=== PATIENT | female | born 1955 | race Caucasian/White ===

== ENCOUNTER 2016-12-13 05:48 | Inpatient (IN) | payer OTHER ==
[~2016-12-13 05:48] MED LIST: ACETAMINOPHEN 500 MG TAB PO ONE; LR 1,000 ML IV SCH; ROPIVACAINE 0.2% 80 MG, EPINEPHrine 0.2 MG, KETOROLAC TROMETHAMINE 30 MG, morphINE 10 M... IU ONE; ceFAZolin 2 GM/DEXTROSE 100 ML IV ONE
[2016-12-13] MEDS ORDERED: LR 1,000 ML IV SCH ×2 (06:00→09:30)
[2016-12-13] MEDS ORDERED: ROPIVACAINE 0.2% 80 MG, EPINEPHrine 0.2 MG, KETOROLAC TROMETHAMINE 30 MG, morphINE 10 M... IU ONE (06:00)
[2016-12-13] MEDS ORDERED: LIDOCAINE 1% 2 ML INJ ID PRN (06:12)
[2016-12-13] MEDS ORDERED: LR 1,000 ML IV ONE (06:12)
[2016-12-13] MEDS ORDERED: BUPIVACAINE/EPI 0.5% 30 ML SDV ONE (06:44)
[2016-12-13] MEDS ORDERED: THROMBIN (BOVINE) 5,000 UNIT VIAL TP ONE (06:44)
[2016-12-13] MEDS ORDERED: BACITRACIN 50,000 UNITS/10 ML SYR IRR ONE (06:45)
[2016-12-13] MEDS ORDERED: CALCIUM CHLORIDE 1 GM/10 ML INJ ONE (06:45)
[2016-12-13] MEDS ORDERED: POLYMYXIN B SULFATE 500,000 UNIT/10 ML SYR IRR ONE (06:45)
[2016-12-13] MEDS ORDERED: ACETAMINOPHEN 500 MG TAB ONE (06:46)
[2016-12-13] MEDS ORDERED: ACETAMINOPHEN 500 MG TAB PO ONE (07:00)
[2016-12-13] MEDS ORDERED: ceFAZolin 2 GM/DEXTROSE 100 ML IV ONE (07:00)
--- NOTE | 2016-12-13 07:02 | PDHPUP ---
History & Physical Update H&P update statement: This history and physical update is based on an assessment of the patient which was completed after admission or registration (within 24 hours), but prior to the surgery/procedure. H&P update: H&P reviewed & patient examined, no change in patient's condition since H&P completed
[2016-12-13] MEDS ORDERED: MIDAZOLAM 2 MG/2 ML VIAL IVP ONE (07:10)
--- NOTE | 2016-12-13 07:13 | PDANEPAE ---
ANE History of Present Illness osteoarthritis of the left knee ANE Past Medical History - Cardiovascular History Hx Hypertension: No Hx Arrhythmias: No Hx Chest Pain: No Hx Coronary Artery / Peripheral Vascular Disease: No Hx CHF / Valvular Disease: No - Pulmonary History Hx COPD: No Hx Asthma/Reactive Airway Disease: No Hx Recent Upper Respiratory Infection: No Hx Oxygen in Use at Home: No Hx Sleep Apnea: No Sleep Apnea Screening Result - Last Documented: Negative - Neurologic History Hx Cerebrovascular Accident: No Hx Seizures: No Hx Dementia: No - Endocrine History Hx Diabetes: No - Renal History Hx Renal Disorders: No - Liver History Hx Hepatic Disorders: No - Neurological & Psychiatric Hx Hx Neurological and Psychiatric Disorders: No - Cancer History Hx Cancer: No - Congenital Disorder History Hx Congenital Disorders: No - GI History Hx Gastrointestinal Disorders: No - Other Health History Other Health History: OA, traumatic injury 40yrs ago Left knee - Chronic Pain History Chronic Pain: No - Surgical History Prior Surgeries: R rotator cuff 12-10-14. LEFT KNEE 40 YEARS AGO FOR TORN LIGAMENT. 4X ABD SURGERIES FOR ECTOPIC PREGNANCIES. 2002 OVARIES REMOVED. TONSILLECTOMY CHILD ANE Review of Systems - Exercise capacity METS (RN): 4 METS ANE Patient History - Allergies Allergies/Adverse Reactions: No Known Allergies Allergy (Verified 11/22/16 10:03) - Home Medications Home Medications: Alendronate Sodium [Fosamax 70 MG (*)] 70 mg PO MO@0700 11/18/16 [Last Taken Unknown] Calcium Carb W/Vit D [Calcium Carb W/Vit D 500/200 (*)] 500 mg PO BID 11/18/16 [ Last Taken Unknown] Cholecalciferol Vit D3 [Vitamin D3 2000 units tab (OTC)] 5,000 units PO DAILY [Last Taken Unknown] Herbals/Supplements -Info Only 1 ea PO DAILY 11/18/16 [Last Taken Unknown] Multivitamins [Multivitamin (*)] 1 each PO DAILY 11/18/16 [Last Taken Unknown] Naproxen Sodium [Aleve 220 MG (*)] 440 mg PO BID PRN 11/18/16 [Last Taken Unknown] - NPO status NPO Since - Liquids (Date): 01/12/17 NPO Since - Liquids (Time): 22:00 NPO Since - Solids (Date): 01/12/17 NPO Since - Solids (Time): 18:00 - Smoking Hx Smoking Status: Never smoked - Family Anes Hx Family Hx Anesthesia Complications: NONE ANE Labs/Vital Signs - Vital Signs Blood Pressure: 115/85 Heart Rate: 81 Respiratory Rate: 16 O2 Sat (%): 97 Height: 165.1 cm Weight: 54.431 kg ANE Physical Exam - Airway Neck exam: FROM Mallampati Score: Class 1 Mouth exam: normal dental/mouth exam - Pulmonary Pulmonary: no respiratory distress - Cardiovascular Cardiovascular: regular rate and rhythym - ASA Status ASA Status: I ANE Anesthesia Plan Anesthesia Plan: MAC, spinal Regional Anesthesia: single shot NB, adductor canal FNB
[2016-12-13] MEDS ORDERED: DEXAMETHASONE 4 MG/ML VIAL ONE (07:14)
[2016-12-13] MEDS ORDERED: ONDANSETRON 4 MG/2 ML VIAL ONE (07:14)
[2016-12-13] MEDS ORDERED: MIDAZOLAM 2 MG/2 ML VIAL ONE (07:14)
[2016-12-13] MEDS ORDERED: fentaNYL 100 MCG/2 ML INJ ONE ×2 (07:15→08:57)
[2016-12-13] MEDS ORDERED: PROPOFOL/EMULSION 500 MG/50 ML BOTTLE IV ONE (07:15)
[2016-12-13] MEDS ORDERED: ROPIVACAINE HCL 150 MG/30 ML INJ ONE (07:55)
[2016-12-13] MEDS ORDERED: HYDROmorphONE/DILAUDID 1 MG/ML SYR IVP PRN (08:08)
[2016-12-13] MEDS ORDERED: DEXAMETHASONE 4 MG/ML VIAL IVP PRN (08:08)
[2016-12-13] MEDS ORDERED: fentaNYL 100 MCG/2 ML INJ IVP PRN (08:08)
[2016-12-13] MEDS ORDERED: NALOXONE HCL 0.4 MG/ML INJ IVP PRN (08:08)
[2016-12-13] MEDS ORDERED: PROMETHAZINE HCL 25 MG/ML INJ IVP PRN ×2 (08:08→09:26)
[2016-12-13] MEDS ORDERED: epHEDrine SULFATE 10 MG/ML SYR ONE (08:24)
[2016-12-13] MEDS ORDERED: PROPOFOL 200 MG/20 ML VIAL ONE (09:04)
--- NOTE | 2016-12-13 09:25 | POSTOPPROG ---
Post Op Note Date of Operation: 12/13/16 Surgeon: Gloria Lopes Dormitory Keeper: coltrain Anesthesia: Epidural, IV Sedation Pre-op Diagnosis: l knee oa Procedure: l tkr Inf/Abcess present in the surg proc area at time of surgery?: No EBL: 100-500
[2016-12-13] MEDS ORDERED: PROMETHAZINE HCL 25 MG SUPPR PR PRN (09:26)
[2016-12-13] MEDS ORDERED: MAGNESIUM HYDROXIDE 30 ML UDCUP PO PRN (09:26)
[2016-12-13] MEDS ORDERED: TAPENTADOL HCL 50 MG TAB PO PRN (09:26)
[2016-12-13] MEDS ORDERED: POLYETHYLENE GLYCOL 3350 17 GM PKT PO PRN (09:26)
[2016-12-13] MEDS ORDERED: ONDANSETRON DISINTEGRATING 4 MG TAB PO PRN (09:26)
[2016-12-13] MEDS ORDERED: DIPHENOXYLATE/ATROPINE LOMOTIL 1 TAB PO PRN (09:26)
[2016-12-13] MEDS ORDERED: CYCLOBENZAPRINE 10 MG TAB PO PRN (09:26)
[2016-12-13] MEDS ORDERED: METOCLOPRAMIDE 10 MG/2 ML VIAL IVP PRN (09:26)
[2016-12-13] MEDS ORDERED: BISACODYL 10 MG SUPP PR PRN (09:26)
[2016-12-13] MEDS ORDERED: PHARMACY PAIN CONSULT 1 EA MISC PRN (09:26)
[2016-12-13] MEDS ORDERED: diphenhydrAMINE 25 MG CAP PO PRN (09:26)
[2016-12-13] MEDS ORDERED: ONDANSETRON 4 MG/2 ML VIAL IVP PRN (09:26)
[2016-12-13] MEDS ORDERED: oxyCODONE IR 5 MG TAB PO PRN (09:26)
[2016-12-13] MEDS ORDERED: LACTULOSE 20 GM/30 ML UDCUP PO PRN (09:26)
--- NOTE | 2016-12-13 09:45 | POSTANESTH ---
Post Anesthetic Evaluation Cardiovascular Status: Normal, Stable Respiratory Status: Normal, Stable Level of Consciousness/Mental Status: Can Participate in Eval Pain Control: Adequate, Prn Tx Ordered Nausea/Vomiting Control: Adequate, Prn Tx Ordered Complications Possibly Related to Anesthesia: None Noted
[2016-12-13] MEDS: KETOROLAC 30 MG/1 ML SDV IVP SCH ×2 (11:51→17:58)
[2016-12-13] MEDS: traMADol 50 MG TAB PO SCH ×2 (11:51→17:58)
[2016-12-13] MEDS: ACETAMINOPHEN 325 MG TAB PO SCH ×2 (11:52→17:58)
[2016-12-13] MEDS: ceFAZolin 2 GM/DEXTROSE 100 ML IV SCH ×2 (14:06→20:22)
--- NOTE | 2016-12-13 14:07 | GOP ---
[f rep st] OPERATIVE REPORT DATE OF OPERATION: 12/13/2016 SURGEON: Gloria Lopes MD WELDER RAILCAR MECHANIC: Irwin Maciel, CSFA, LSA whose presence was medically necessary. ANESTHESIA: By spinal, plus sedation. PREOPERATIVE DIAGNOSIS: Left knee osteoarthritis. POSTOPERATIVE DIAGNOSIS: Left knee osteoarthritis. PROCEDURE PERFORMED: Left total knee arthroplasty. FINDINGS: INDICATIONS: This is a 61-year-old female with a long history of left knee pain despite multiple castro rgeries and conservative measures. She wishes to have surgery in order to resolve the problem. DESCRIPTION OF PROCEDURE: The patient was brought to the operating room after the left side had bee n identified as the correct side by the patient, nurse and physician. Once in the operating room, s he was given epidural nerve block and then placed under sedation. A tourniquet was then placed on t he upper portion of the left thigh, and the left lower extremity was sterilely prepped and draped in the usual fashion using GSI solution. Once prepped and draped, limb was exsanguinated, tourniquet inflated to 250 mmHg. A linear incision was made on the anterior portion of the knee with 1 handbre adth above and below the patella, with sharp dissection carried down through the skin and subcutaneo us layers. Bleeding was controlled using electrocautery. A medial parapatellar incision was made t hrough the extensor mechanism with the patella brought to the side, but not everted. The ACL along with the medial and lateral meniscus were removed. She had significant spurring and grade 4 chondra l changes to the patellofemoral medial compartments. Osteophytes were not removed secondary to the custom made jigs that she had made for her. The 1st jig was placed on the distal end of the femur with lug holes drilled for the 2nd jig. The 2 nd jig was put into place with the end cutting guide and was pinned into place. A sagittal saw hugo g with an oscillating saw was used to remove the distal end of the femur until achieving a flat cut. Once positioned and had been checked to ensure a flat cut, drill holes had been made in the distal portion; therefore, the guide pins were placed in the distal end of the femur, and the 4-in-1 block was put into place, pinned into place using locking screws. The anterior posterior and anterior ch amfer cuts were made. Lug holes were drilled in the distal end of the femur, and a chamfer jig was then placed on the cut surface of the femur. Once the femur had been entirely cut, the trial was pu t into place, noted to fit securely. The leg was able to achieve full extension, suggesting that am ple bone had been removed. The trial was removed. The knee was brought to maximal flexion with the tibia subluxed anteriorly. Soft tissue dissection was done particularly on the medial portion in order to gain access to the osteophytes that the jig had been designed to accommodate. Once in place, the area where the feet sat upon the tibial platea u were marked with a ring, a curette was used to remove the cartilage to gain access to the bone bel ow. The jig was replaced onto the proximal tibia. The alignment looked good with a slight amount o f posterior slope and neutral varus/valgus. It was therefore pinned into place. An oscillating saw was used to remove the proximal portion of the tibia. Tibial trial along with femoral trial were p ut into place, and noted to fit securely. The rotation of the tibial component was marked. The fem oral component was removed. After the knee had been brought to maximal flexion, the tibial trial was pinned into place with an i ntramedullary reamer and a keel punch passed through the trial. The trial was then removed. The kn ee was brought to full extension. The patella was then everted, held in place with towel clamps. I t was measured to be 22 mm in thickness. Therefore, an oscillating saw was used to expose the poste rior portion of the patella, leaving 14 mm of bone. Multiple sizes were trialed on the cut surface of the patella, and noted a 35 mm patella button seemed to fit best. Therefore, lug holes drilled f or a 35 mm button. A joint cocktail was then injected around the femur, the posterior capsule, and the proximal tibia. The cut surfaces of bone were then thoroughly irrigated with antibiotic solution using pulsatile la vage while cement was being mixed. Once cement was doughy, it was placed on the proximal end of the tibia with a custom-made Conformist tibial component put into place, and excess cement removed usin g [place] elevators. Cement was placed on the posterior skids of the femoral component with cement pl aced on the distal anterior portion of the femur and a custom-made Conformist cruciate-retaining fem oral component was put into place, and excess cement removed using [place] elevator. Trial liner was placed on the tibial tray. The knee was brought to full extension under pressurized cement. Any ex cess cement was removed using [place] elevators. Cement was then placed on the cut surface of the pat narayan, and a 35 mm Conformist polyethylene button put into place, and excess cement removed using David er elevators. Once cement had hardened, multiple trials were placed in the tibial tray, noted that a size 7 medial insert seemed to fit best without blocking full extension. Therefore, a 7 mm medial polyethylene i nsert was put into place. On the lateral side, a size A insert was noted to have a snug fit without overstuffing the joint; therefore, a lateral size A polyethylene insert was placed in the tibial tr ay. The tourniquet was released at 61 minute. Bleeding was controlled using electrocautery. The wound was then closed using 0 Vicryl suture in a ecqnst-vd-bewwc type stitch for the extensor mechanism wi th Plasmagel placed intra-articularly. Then, 0 Vicryl and 2-0 Vicryl suture were used to close the subcutaneous layers, with Plasmagel placed external to the extensor mechanism. Then, 30 cc of Christine ine was infused around the actual skin incision itself. A 3-0 V-Loc suture was used to close the sk in in a running subcuticular stitch. The wound was then dressed with Steri-Strips, Xeroform, 4 x 4, and Kerlix. Leg was completely undraped in the operating room, tourniquet removed from the thigh, and an Reg wrap placed around the knee. She was then transferred onto a stretcher, and sent to [facility] room in good condition. TOURNIQUET TIME: 61 minute. /[id number]/MODL
[2016-12-13] MEDS: TEMAZEPAM 15 MG CAP PO PRN (20:22)
[2016-12-13] MEDS: SENNOSIDES/DOCUSATE SODIUM TAB PO SCH (20:22)
[2016-12-13] MEDS: FAMOTIDINE 20 MG TAB PO SCH (20:22)
[2016-12-14] MEDS: ACETAMINOPHEN 325 MG TAB PO SCH ×3 (00:42→12:13)
[2016-12-14] MEDS: traMADol 50 MG TAB PO SCH ×3 (00:42→12:13)
[2016-12-14] MEDS: KETOROLAC 30 MG/1 ML SDV IVP SCH ×3 (00:43→12:13)
[2016-12-14] MEDS: TEMAZEPAM 15 MG CAP PO PRN (00:44)
[2016-12-14 05:10] LABS: HEMATOCRIT 32.9 % (38.0-47.0); HEMOGLOBIN 10.8 g/dL (12.6-16.3)
[2016-12-14] MEDS ORDERED: RIVAROXABAN 10 MG TAB PO SCH (09:00)
[2016-12-14] MEDS: SENNOSIDES/DOCUSATE SODIUM TAB PO SCH (09:49)
[2016-12-14] MEDS: FAMOTIDINE 20 MG TAB PO SCH (09:50)
[2016-12-14 11:26] VITALS: BP 115/65; PULSE 70; RESP 18; TEMP 98.1; O2SAT 95
--- NOTE | 2016-12-14 12:05 | SOAPPROG ---
CHANI Progress Note Assessment/Plan: Assessment: Plan: - d/c home, does not need PT, will start outpatient PT next Monday12/14/16 12:03 Subjective: Doing well, minimal pain, did stairs with PT today. Would like to be discharged Objective: Vital Signs Temp Pulse Resp BP Pulse Ox 36.7 C 70 18 115/65 95 12/14/16 11:25 12/14/16 11:25 12/14/16 11:25 12/14/16 11:25 12/14/16 11:25 Laboratory Results 12/14/16 04:40 12/13/16 12/14/16 12/15/16 05:59 05:59 05:59 Intake Total 2280 Output Total 700 Balance 1580 Wound CDI, no active bleeding, ROM 5 to 90, calf NT, neg Homman's - Time Spent With Patient Time Spent With Patient: 15 - Pending Discharge Pending Discharge Within 24 Hours: Yes Pending Discharge Within 48 Hours: No Pending Discharge Date: 12/15/16 Pending Discharge Time: 11:00 ICD10 Worksheet Patient Problems: Problems Problem Status Onset Arthritis of left knee Acute - ICD10 Problem Qualifiers (1) Arthritis of left knee
== END 2016-12-14 12:45 | disposition home or self-care (01) | DRG 470 ==
LOC: F3N 05:48
PROVIDERS: ADMIT Orthopaedic Surgery; ATTEND Orthopaedic Surgery
PROC: 0SRD0J9 Replacement of Left Knee Joint with Synthetic Substitute, Cemented, Open Approach (ICD-10-PCS; principal; 2016-12-13 07:15)
DX: M17.12 Unilateral primary osteoarthritis, left knee (principal)
CPT/HCPCS: 97116-GP; 97161-GP; 97165-GO; 97530-GP; C1713; J0171; J0690; J1100; J1885; J2250; J2405; J2704; J2795; J3010; L1832

== ENCOUNTER → 2017-04-10 | Outpatient (CLI) | payer OTHER | LOC: CIMAGING 09:34 | PROVIDERS: ATTEND Nurse Practitioner | DX: Z12.31 Encounter for screening mammogram for malignant neoplasm of breast (principal) | CPT/HCPCS: G0202 ==

== ENCOUNTER → 2017-04-14 | Outpatient (CLI) | payer OTHER | LOC: BRMIMAGING 14:46 | PROVIDERS: ATTEND Nurse Practitioner | DX: Z13.820 Encounter for screening for osteoporosis (principal); M81.0 Age-related osteoporosis without current pathological fracture; R59.1 Generalized enlarged lymph nodes ==

== ENCOUNTER 2018-01-25 01:53 | Emergency (ER) | payer OTHER ==
--- NOTE | 2018-01-25 02:07 | EDPHY ---
H & P Stated Complaint: c/o jaw pain@ 20/ neck pain 01-took 2 oxy @21 Time Seen by Provider: 01/25/18 02:05 HPI/ROS: CC: Neck and jaw pain HPI: This 62-year-old female with past medical history of osteoporosis presents to the emergency department today complaining of an aching sensation in her trauma bilaterally that started at about 3:00 p.m. In the afternoon yesterday. She knew her then went out to dinner and she did not think much about it but when they got home from dinner she noticed that it was still aching and she took an old oxycodone from her knee replacement last year. She went to sleep at about 9 or 9:30 p.m. but awoke at 1am with the discomfort feeling more deep in her neck, lightheadedness, and as if she couldn't take a deep breath. She also felt slightly clammy. She rated the discomfort at that time at 4/10 and 3/10 currently. She denies having nausea or vomiting, chest, arm or back discomfort, or palpitations. She has no abdominal pain. She has not had episodes like this in the past but has been having jaw pain for a week and has a mouth guard to prevent her from clenching her teeth at night. She has had this guard for years and began wearing it again for this past week. She has not been ill recently. She has not had any long trips or air travel recently and denies leg pain or swelling. She exercises regularly without chest discomfort or other concerning symptoms. She does not have hypertension, diabetes, elevated cholesterol, prior cardiac problems, or family history of premature coronary artery disease. REVIEW OF SYSTEMS: Constitutional: No fever, no chills. Eyes: No discharge. ENT: No sore throat. Respiratory: No cough, no shortness of breath. Cardiac: No chest pain, no palpitations. Gastrointestinal: No abdominal pain, no vomiting. Genitourinary: No dysuria. Musculoskeletal: No back pain. Skin: No rashes. Neurological: No headache. 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 - Physical Exam Exam: General Appearance: Alert, anxious. Eyes: Pupils equal and round no pallor or injection. ENT, Mouth: Mucous membranes are moist. No pharyngeal erythema. Uvula midline. Neck: Supple, non-tender to palpation, no JVD, no bruits. Respiratory: There are no retractions, lungs are clear to auscultation. Cardiovascular: Regular rate and rhythm. No murmurs, gallops, or rubs. Gastrointestinal: Abdomen is soft and nontender, no masses, bowel sounds normal. Neurological: Awake and alert, sensory and motor exams grossly normal. Skin: Warm and dry, no rashes. Musculoskeletal: No calf tenderness, warmth, cords, or erythema. Extremities are symmetrical, full range of motion. Psychiatric: Patient is oriented X 3, there is no agitation. DIFFERENTIAL DIAGNOSIS: After history and physical exam differential diagnosis was considered for but not limited to: NH, cardiac ischemia, angina equivalent, pulmonary embolism, muscle spasm/teeth clenching, gastroesophageal reflux. Constitutional: Initial Vital Signs Temperature (C) 98 F 01/25/18 01:55 Heart Rate 87 01/25/18 01:55 Respiratory Rate 18 01/25/18 01:55 Blood Pressure 158/102 H 01/25/18 01:55 O2 Sat (%) 95 01/25/18 01:55 O2 Delivery Mode Room Air Allergies/Adverse Reactions: No Known Allergies Allergy (Verified 11/22/16 10:03) Home Medications: Medication Instructions Recorded Calcium Carb W/Vit D [Calcium Carb 500 mg PO BID 11/18/16 W/Vit D 500/200 (*)] Cholecalciferol Vit D3 [Vitamin D3 5,000 units PO DAILY 11/18/16 2000 units tab (OTC)] Herbals/Supplements -Info Only 1 ea PO DAILY 11/18/16 Multivitamins [Multivitamin (*)] 1 each PO DAILY 11/18/16 Naproxen Sodium [Aleve 220 MG (*)] 440 mg PO BID PRN 11/18/16 Acetaminophen [Tylenol 325mg (*)] 650 mg PO Q6HRS #0 tab 12/14/16 oxyCODONE IR [Oxycodone Ir (*)] 5 - 10 mg PO Q3HRS PRN #0 tab 12/14/16 Medical Decision Making - Diagnostics EKG Interpretation: EKG number one: Baseline artifact, normal sinus rhythm, heart rate 93, borderline right axis deviation, borderline QT prolongation with a QTcB of 494 and QTcF of 459, minimal ST depression precordial leads EKG number two: Baseline artifact resolved, normal sinus rhythm, heart rate 79 , minimal ST depression diffuse leads similar to that seen in EKG #1 Imaging Results: 2-view CXR: Normal Imaging: I viewed and interpreted images myself ED Course/Re-evaluation: The patient was seen and examined. Vital signs reviewed. Prior records reviewed but were limited to mainly orthopedic issues. No prior EKG. The patient was hypertensive on arrival but this normalized during her stay. She was given an aspirin upon arrival. EKG 1 showed a normal sinus rhythm with a heart rate of 93. There is baseline artifact but minimal ST depression was noted in the precordial leads. Her CBC and comprehensive metabolic panel were unremarkable and her troponin was 0.00. Her chest x-ray was normal. A D-dimer was not performed because she did not meet PERC criteria and had no risk factors for PE. The patient was offered observation at [facility] for further evaluation including troponin and stress test. She and her discussed the options and elected to have a repeat troponin and EKG and if normal go home and follow up outpatient in the next 1 - 3 days. Her HEART score is 3 which is low risk with risk for major adverse cardiac event being 0.9-1.7%. Her 2nd EKG showed a normal sinus rhythm with a heart rate of 79, and again the minimal ST depression in the precordial leads was noted and unchanged from EKG 1. Her 2nd troponin is also 0.00 in the setting of continued neck discomfort for more than 4 hours. She declined NTG or GI coctail. She will be discharged to follow up with [facility] as directed. If she has any difficulty getting seen in the next couple days and most importantly before they leave for a motorcycle tour across [place] on January 30 (which is 5 days from now), they were advised to return to the emergency room. She has also agreed to return to the emergency room immediately if symptoms change or worsen as discussed. - Data Points Laboratory Results: Laboratory Results 01/25/18 02:27 01/25/18 01/25/18 01/25/18 04:04 02:33 02:32 WBC RBC Hgb Hct MCV MCH MCHC RDW Plt Count MPV Neut % (Auto) Lymph % (Auto) Dubois % (Auto) Eos % (Auto) Baso % (Auto) Nucleat RBC Rel Count Absolute Neuts (auto) Absolute Lymphs (auto) Absolute Monos (auto) Absolute Eos (auto) Absolute Basos (auto) Absolute Nucleated RBC Immature Gran % Immature Gran # POC Sodium 142 mEq/L mEq/L (135-145) POC Potassium 4.4 mEq/L mEq/L (3.3-5.0) POC Chloride 103.0 mEq/L mEq/L (97-110) POC Total CO2 28 mEq/L mEq/L (22-31) POC BUN 18 mg/dL mg/dL (7-23) POC Creatinine 1.0 mg/dL mg/dL (0.6-1.0) POC Glucose 111 mg/dL H mg/dL (70-100) POC Calcium 9.3 mg/dL mg/dL (8.5-10.4) POC Total Bilirubin 0.5 mg/dL mg/dL (0.1-1.4) POC AST 36 IU/L IU/L (14-46) POC ALT 19 IU/L IU/L (9-52) POC Alk Phosphatase 64 IU/L IU/L (38-126) POC Troponin I 0.00 ng/mL ng/mL 0.00 ng/mL ng/mL (0.00-0.08) (0.00-0.08) POC Total Protein 6.6 g/dL g/dL (6.3-8.2) POC Albumin 3.8 g/dL g/dL (3.5-5.0) 01/25/18 02:27 WBC 8.30 10^3/uL 10^3/uL (3.80-9.50) RBC 4.29 10^6/uL 10^6/uL (4.18-5.33) Hgb 14.1 g/dL g/dL (12.6-16.3) Hct 41.9 % % (38.0-47.0) MCV 97.7 fL fL (81.5-99.8) MCH 32.9 pg pg (27.9-34.1) MCHC 33.7 g/dL g/dL (32.4-36.7) RDW 12.9 % % (11.5-15.2) Plt Count 219 10^3/uL 10^3/uL (150-400) MPV 10.2 fL fL (8.7-11.7) Neut % (Auto) 68.3 % % (39.3-74.2) Lymph % (Auto) 21.6 % % (15.0-45.0) Dubois % (Auto) 8.2 % % (4.5-13.0) Eos % (Auto) 0.8 % % (0.6-7.6) Baso % (Auto) 0.6 % % (0.3-1.7) Nucleat RBC Rel Count 0.0 % % (0.0-0.2) Absolute Neuts (auto) 5.67 10^3/uL 10^3/uL (1.70-6.50) Absolute Lymphs (auto) 1.79 10^3/uL 10^3/uL (1.00-3.00) Absolute Monos (auto) 0.68 10^3/uL 10^3/uL (0.30-0.80) Absolute Eos (auto) 0.07 10^3/uL 10^3/uL (0.03-0.40) Absolute Basos (auto) 0.05 10^3/uL 10^3/uL (0.02-0.10) Absolute Nucleated RBC 0.00 10^3/uL 10^3/uL (0-0.01) Immature Gran % 0.5 % % (0.0-1.1) Immature Gran # 0.04 10^3/uL 10^3/uL (0.00-0.10) POC Sodium POC Potassium POC Chloride POC Total CO2 POC BUN POC Creatinine POC Glucose POC Calcium POC Total Bilirubin POC AST POC ALT POC Alk Phosphatase POC Troponin I POC Total Protein POC Albumin Medications Given: Discontinued Medications Aspirin (Aspirin) 324 mg PO EDNOW ONE Stop: 01/25/18 02:41 Last Admin: 01/25/18 02:52 Dose: 324 mg Point of Care Test Results: Chemistry 01/25/18 01/25/18 01/25/18 04:04 02:33 02:32 POC Sodium 142 mEq/L mEq/L (135-145) POC Potassium 4.4 mEq/L mEq/L (3.3-5.0) POC Chloride 103.0 mEq/L mEq/L (97-110) POC Total CO2 28 mEq/L mEq/L (22-31) POC BUN 18 mg/dL mg/dL (7-23) POC Creatinine 1.0 mg/dL mg/dL (0.6-1.0) POC Glucose 111 mg/dL H mg/dL (70-100) POC Calcium 9.3 mg/dL mg/dL (8.5-10.4) POC Total Bilirubin 0.5 mg/dL mg/dL (0.1-1.4) POC AST 36 IU/L IU/L (14-46) POC ALT 19 IU/L IU/L (9-52) POC Alk Phosphatase 64 IU/L IU/L (38-126) POC Troponin I 0.00 ng/mL ng/mL 0.00 ng/mL ng/mL (0.00-0.08) (0.00-0.08) POC Total Protein 6.6 g/dL g/dL (6.3-8.2) POC Albumin 3.8 g/dL g/dL (3.5-5.0) Departure - Departure Disposition: Home, Routine, Self-Care Clinical Impression: Pain in lower jaw, Neck discomfort Condition: Good Instructions: Chest Pain (ED) Additional Instructions: Please read and follow provided instructions. Follow-up with [facility], our cardiology group in the next 1-3 days for re- evaluation and testing as discussed. Return to the emergency department for worsening or changing symptoms as discussed. (Enjoy your motorcycle tour through [place]!) Referrals: Edie Silver NP [Certified Nurse Practioner] - As per Instructions CARDIOLOGY,[facility] [Edm Groups for Call Sched] - As per Instructions
[2018-01-25] MEDS ORDERED: ASPIRIN 81 MG CHEWABLE TAB PO ONE (02:40)
--- NOTE | 2018-01-25 02:53 | CPEKG ---
Test Reason : OPEN Blood Pressure : / mmHG Vent. Rate : 093 BPM Atrial Rate : 092 BPM P-R Int : 125 ms QRS Dur : 091 ms QT Int : 397 ms P-R-T Axes : 085 082 000 degrees QTc Int : 494 ms Sinus rhythm Borderline right axis deviation Borderline prolonged QT interval Nonspecific ST depression Confirmed by Viridiana Acosta ([id number]) on 01/25/2018 2:53:17 AM Referred By: Confirmed By:Viridiana Acosta
[2018-01-25 03:15] LABS: PLATELET COUNT 219 10^3/uL (150-400)
[2018-01-25 04:42] VITALS: BP 118/64
== END 2018-01-25 04:41 | disposition home or self-care (01) ==
LOC: CED 01:53
DX: M54.2 Cervicalgia (principal); R68.84 Jaw pain
CPT/HCPCS: 71046-PO; 80053-PO; 84484-PO

== ENCOUNTER 2018-01-25 17:31 | Observation (INO) | payer OTHER ==
[2018-01-25] MEDS ORDERED: ACETAMINOPHEN 325 MG TAB PO PRN (19:15)
[2018-01-25] MEDS ORDERED: ONDANSETRON DISINTEGRATING 4 MG TAB PO PRN (19:15)
[2018-01-25] MEDS ORDERED: ONDANSETRON 4 MG/2 ML VIAL IVP PRN (19:15)
[2018-01-25 19:28] LABS: PLATELET COUNT 192 10^3/uL (150-400)
--- NOTE | 2018-01-25 20:09 | GHP ---
DATE OF ADMISSION: 01/25/2018 INDICATION FOR ADMISSION: New onset of jaw pain, neck pain, midscapular. HISTORY OF PRESENT ILLNESS: Shayy is a pleasant 62-year-old female with a past medical history of os teoporosis, total knee replacement, and rotator cuff surgery, who presented to the office today with a 2-day history of jaw pain, neck pain, and midscapular discomfort. Shayy states that she was in her usual state of health until yesterday. During the day, she developed a bilateral jaw discomfort orquidea t she described as dull and nonradiating. She states the jaw discomfort persisted throughout the day with no exacerbating or alleviating factors and no other associated symptoms. She reports that at 8 :30 p.m. she commented to her that her jaw was hurting. She did not seek medical attention a t that time. She woke up at 1:00 a.m. this morning with the pain in her jaw radiating down into her neck, associat ing with a feeling of lightheadedness, dizziness, and diaphoresis, as well as shortness of breath. S he presented to [facility] at 2 a.m. this morning. Her workup there demonstrated ini tial blood pressure 158/102 and a heart rate of 87. ECG demonstrated borderline ST-segment depressio n throughout the precordial leads. Chest x-ray was unremarkable. Troponins x2 were negative and she was discharged home for followup with me in the office today. Of note, she was seen by her primary care physician earlier today, who recommended that she continue to keep her appointment with me this afternoon secondary to ongoing discomfort. She states that she continues to have jaw discomfort, neck pain, and midscapular discomfort that she is unable to alleviate with change in position. Symptoms are worse with deep inspiration and she not es feeling pressure and tightness behind her throat, particularly with lying flat. She admits to catie e ongoing mild shortness of breath and dyspnea on exertion. She has been traveling recently with long road trips, driving from [place] returning to [place], and then driving down to [place] and other parts of [place] and [facility]. She has no history of DVT or pulmonary emboli. Given her history and symptoms, I did send her down for a stat CTA, which was negative for aortic dis section or pulmonary emboli. She returned to the office after her study with ongoing symptoms. I recommended she be admitted to [facility] for further evaluation. REVIEW OF SYSTEMS: A 10 point review of systems is negative with the exception of those described ab joyce in HPI. PAST MEDICAL HISTORY: Osteoporosis; orthopedic issues including total knee replacement and rotator c uff surgery. MEDICATIONS ON ADMISSION: Alendronate 70 mg once daily for osteoporosis. SOCIAL HISTORY: She is . She is physically active. She is a lifelong nonsmoker. She lives with her . She exercises doing yoga. FAMILY HISTORY: Her mother at the age of 59 from a brain aneurysm. Her brother from a bra in aneurysm as well. Both had a history of polycystic kidney disease. Her father at 71 from me sothelioma. PHYSICAL EXAMINATION: VITAL SIGNS: Blood pressure of 122/84 with a heart rate of 96, weight of 57.2 kg, body mass index of 20.76, oxygen saturation 93% on room air. GENERAL: She is awake, alert, homer ented, appropriate. No apparent distress. NECK: There is no evidence of JVP or carotid bruits. OLE NGS: Clear to auscultation bilaterally. CARDIAC: S1, S2. Regular rate and rhythm. No murmurs, ru bs, or gallops. ABDOMEN: Soft, nontender, nondistended. Abdominal aorta is palpable but within nor mal size. No evidence of abdominal bruit. No evidence of cyanosis, clubbing, edema. Dorsalis pedis and posterior tibial pulses are intact. IMPRESSION: 1. New onset of ongoing jaw pain, midscapular pain, and throat tightness, exacerbated with deep insp iration and with lying flat, coupled with symptoms of dyspnea on exertion and shortness of breath. C TA is negative for pulmonary embolism or aortic dissection. Recommend patient be admitted for furthe r evaluation including repeat ECG, serial troponins. Would also recommend CTA of the bilateral carot ids and the head. We will recommend complete 2D echocardiogram. 2. We will keep patient n.p.o. after midnight. Pending the above evaluation, we will consider exerc ise stress testing versus cardiac catheterization. PLAN: 1. Admit to [facility] telemetry to Cardiology Service. 2. CTA of the head and neck to be performed this evening. 3. Complete 2D echocardiogram to be performed tomorrow. 4. n.p.o. after midnight. 5. Will obtain ECG. 6. Serial troponins. 7. Plan for exercise nuclear stress test versus cardiac catheterization pending results of workup. /[id number]/MODL
[2018-01-25] MEDS ORDERED: IOPAMIDOL (ISOVUE 370) 100 ML BTL IV ONE (21:02)
[2018-01-26 03:41] LABS: PLATELET COUNT 184 10^3/uL (150-400)
[2018-01-26 03:48] LABS: INR 1.04 (0.83-1.16); PROTIME(PATIENT) 13.8 SEC (12.0-15.0)
--- NOTE | 2018-01-26 10:04 | ASMTCMCOM ---
CM Note CM Note Notes: Pt is a 62 y/o female admitted for chest pain and jaw pain. Pt had a neck and head CTA which was negative. Pt will most likely d/c independent when medically stable. No therapies ordered at this time. CM available for changes. Plan: Independent Date Signed: 01/26/2018 10:03 AM Electronically Signed By:SHAMA Baer
[2018-01-26] MEDS ORDERED: DIAZEPAM 5 MG TAB PO ONE (10:23)
[2018-01-26] MEDS ORDERED: ASPIRIN EC 325 MG TAB PO ONE ×2 (10:23→10:45)
[2018-01-26] MEDS ORDERED: FAMOTIDINE 20 MG TAB PO ONE (10:23)
[2018-01-26] MEDS ORDERED: TEMAZEPAM 15 MG CAP PO PRN (10:23)
[2018-01-26] MEDS ORDERED: diphenhydrAMINE 25 MG CAP PO ONE ×2 (10:23→10:44)
--- NOTE | 2018-01-26 10:23 | PDPROPOC ---
Sedation Plan of Care Sedation Plan of Care: vital signs stable, mental status noted, patient educated of risks, benefits, alternatives, patient can tolerate sedation ASA Classification: ASA 1 Planned drugs: fentanyl, midazolam Mallampati Score: Class 1 Mallampati Reference Image: Patient passed 3-3-2 rule?: Yes
[2018-01-26] MEDS ORDERED: FAMOTIDINE 20 MG TAB ONE (10:45)
[2018-01-26] MEDS ORDERED: LIDOCAINE 1% 300 MG/30 ML SDV ONE (10:45)
[2018-01-26] MEDS ORDERED: fentaNYL 100 MCG/2 ML INJ ONE (10:46)
[2018-01-26] MEDS ORDERED: HEPARIN 10,000 UNIT/10 ML MDV (1,000 UNIT/ML) ONE (10:46)
[2018-01-26] MEDS ORDERED: IOPAMIDOL (ISOVUE-370) 150 ML BTL IV ONE (10:46)
[2018-01-26] MEDS ORDERED: VERAPAMIL 5 MG/2 ML VIAL ONE (10:46)
[2018-01-26] MEDS ORDERED: MIDAZOLAM 2 MG/2 ML VIAL ONE ×2 (10:46)
[2018-01-26] MEDS ORDERED: DIAZEPAM 5 MG TAB ONE (10:46)
--- NOTE | 2018-01-26 11:01 | ECHO ---
[email or web address] [address] [address] Main: [phone] Fax: Transthoracic Echocardiogram Name: NANCY HAMILTON MR#: [id number] Study Date: 01/26/2018 Study Time: 08:02 AM Date of : 1955 Age: 62 year(s) Height: 165.1 cm (65 in.) Weight: 55.79 kg (123 lb.) BSA: 1.61 m2 Gender: Female Examination: Echo Indication: jaw pain, discomfort with lying flat, neck pain and back pain Image Quality: Adequate Contrast: Requested by: Alli Jones BP: 136 mmHg/86 mmHg Heart Rate: Rhythm: Indication: jaw pain, discomfort with lying flat, neck pain and back pain Procedure Staff Product Mgmt Dev Manager: Kym Holder RD Reading Physician: Lencho Thomas MD Requesting Provider: Conclusions: Normal size left ventricle. Normal global systolic LV function. EF is 68 %. Normal diastolic LV function. Trivial mitral valve regurgitation. Trivial tricuspid valve regurgitation. Pulmonary artery pressure is not obtained due to inadequate TR jet. Measurements: Chambers Valvular Assessment AV/MV Valvular Assessment TV/PV Normal Normal Normal Name Value Range Name Value Range Name Value Range Ao Veronica (MM): 3.1 cm (2.2 cm-3.7 AV Vmax: 1.21 m/s (1 m/s-1.7 PV Vmax: 0.98 m/s (0.6 m/s-0.9 cm) m/s) m/s) IVSd (2D): 0.8 cm (0.6 cm-1.1 AV maxP mmHg ( - ) PV PGmax: 4 mmHg ( - ) cm) LVOT Vmax: 0.84 m/s (0.7 m/s-1.1 LVDd (2D): 4.5 cm (3.9 cm-5.3 m/s) cm) EDIN (Vmax): 2.0 cm2 ( - ) LVDs (2D): 3.1 cm (2.1 cm-4 MV E Vmax: 0.47 m/s ( - ) cm) MV A Vmax: 0.47 m/s ( - ) LVPWd (2D): 0.7 cm ( - ) MV E/A: 1.00 ( - ) LVOTd 1.9 cm 1.9 cm mm LVEF (BP): 68 % (>=55 %) RVDd(2D): 2.6 cm (1.9 cm-3.8 cmmm) Continued Measurements: Chambers Valvular Assessment AV/MV Patient: NANCY HAMILTON Study Date: 01/26/2018 Page 1 of 2 08:02 AM Name Value Name Value LADs Lon.6 cm MV DecTime: 137 m/s LA Area: 14.3 cm2 MV E' Septal: 0.07 m/s LA Volume: 47 ml MV E/E' Septal: 6.90 LA Volume Index: 29.2 ml/m2 MV E/E' Lateral: 3.30 TAPSE: 1.8 cm RA Area: 11.3 cm2 Additional Vessels Name Value Ao Ascendin.6 cm Findings: Left Ventricle: Normal size left ventricle. No LV hypertrophy. Normal global systolic LV function. EF is 68 %. Normal diastolic LV function. Right Ventricle: Normal size right ventricle. Normal RV function. Left Atrium: The left atrium is normal in size. 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 Mitral Valve: There is mild thickening of the mitral valve leaflets. Trivial mitral valve regurgitation. No mitral stenosis is present. Aortic Valve: The aortic valve is tri-leaflet. There is no aortic valve regurgitation. No aortic valve stenosis is present. Tricuspid Valve: The tricuspid valve appears normal. Trivial tricuspid valve regurgitation. Pulmonary artery pressure is not obtained due to inadequate TR jet. Pulmonic Valve: Pulmonary valve not well visualized. There is no pulmonic regurgitation seen. Aorta: Normal size aortic root measuring 3.1 cm. Normal size ascending aorta measuring 2.6 cm. IVC: The IVC is normal sized. Pericardium: No pericardial effusion. (No Signature Object) Patient: NANCY HAMILTON Study Date: 01/26/2018 Page 2 of 2 08:02 AM [id number]
[2018-01-26] MEDS ORDERED: ATROPINE SULFATE 1 MG/10 ML SYR IVP PRN (11:55)
--- NOTE | 2018-01-26 13:17 | PDCARPN ---
Cardiology Progress Note Chief Complaint: Neck, jaw and midscapular pain Assessment/Plan: Assessment: 1. Atrial tachycardia 2. Atypical jaw, chest, midscapular neck pain Plan: -start metoprolol tartrate 25 mg p.o. B.i.d. -okay for patient to go on her trip to [place] next week -arrange for consultation with Dr. Marshall Britt regarding EP study and atrial tachycardia ablation -will discharge home later this afternoon. 01/26/18 13:17 Subjective: Shayy states she is feeling better this morning. Neck, jaw and scapular discomfort have resolved. She did describe some episodes of chest pressure throughout the course of the night. Workup to date has been unremarkable. CT of the chest was negative for pulmonary embolism or aortic dissection. CT a of the head and neck demonstrated normal carotid arteries and normal [place] and vertebral circulation. No evidence of aneurysm. Troponin has been negative x2. TSH was normal at 0.7. Telemetry does demonstrate runs of atrial tachycardia at 150 beats per minute with narrow DE interval and ST segment depression. Echocardiogram demonstrates normal left ventricular size and function. Normal atrial dimensions. No significant valvular disease and no evidence of pericardial effusion. In the setting of atypical chest pressure, neck and jaw pain and atrial tachycardia with ST depression, patient underwent diagnostic left heart catheterization demonstrating normal coronary arteries and normal left ventricular function. She is currently recovering from her left heart catheterization. She tolerated the procedure well. Reviewed/Discussed With: family Time Spent with Patient: greater than 25 minutes Time Spent with Patient: Greater than 25 minutes spent on this patients care, greater than 50% of time spent counseling, educating, and coordinating care regarding the above mentioned plan. Objective: Vital Signs (8 Hrs) Temp Pulse Resp BP Pulse Ox 01/26/18 07:11 36.9 C 103 H 14 136/86 H 99 Intake/Output (24 Hrs) 01/25/18 01/26/18 01/27/18 05:59 05:59 05:59 Other: Weight 55.792 kg Number of Voids Toilet 4 Result Diagrams: 01/26/18 03:26 01/25/18 19:20 Cardiac Labs: Cardiac Lab Results (72 Hrs) 01/26/18 01/25/18 03:26 19:20 Troponin I < 0.012 < 0.012 - Physical Exam Ears, Nose, Mouth, Throat: moist mucous membranes Cardiovascular: regular rate and rhythm, no murmurs, no rubs, no gallops ICD10 Worksheet Patient Problems: Problems Problem Status Onset Arthritis of left knee Acute
[2018-01-26] MEDS ORDERED: NAPROXEN SODIUM 220 MG TAB PO PRN (14:28)
--- NOTE | 2018-01-26 14:30 | CPEKG ---
Test Reason : OPEN Blood Pressure : / mmHG Vent. Rate : 085 BPM Atrial Rate : 084 BPM P-R Int : 112 ms QRS Dur : 089 ms QT Int : 389 ms P-R-T Axes : 085 077 069 degrees QTc Int : 463 ms Sinus rhythm Borderline ST depression, diffuse leads Confirmed by Jagdish Posada ([id number]) on 01/26/2018 2:30:15 PM Referred By: Confirmed By:Jagdish Posada
[2018-01-26 15:08] VITALS: BP 119/67
--- NOTE | 2018-01-26 19:24 | GDS ---
ADMIT DIAGNOSIS: Atypical jaw, chest, and midscapular neck pain. DISCHARGE DIAGNOSES: 1. Atrial tachycardia. 2. Atypical jaw, chest, midscapular neck pain. COURSE OF HOSPITALIZATION: The patient was seen in the clinic by Dr. Alli Jones on 01/25/2018, for e valuation of neck, jaw, and scapular discomfort. She had a CT of the chest that was negative for pul monary emboli or aortic dissection. CT of the head and neck demonstrated normal carotid arteries and normal [place] and vertebral circulation. There was no evidence of aneurysm. Troponins we re negative x2. Her TSH was normal. Telemetry on 01/26/2018, demonstrated runs of atrial tachycardi a at 150 beats per minute with narrow SD intervals and ST-segment depression. She did have an echoca rdiogram done that showed normal left ventricular size and function. Normal atrial dimensions and no significant valvular disease or evidence of pericardial effusion. Due to the atypical chest pain, n uyen and jaw pain, and the atrial tachycardia with ST depression, Dr. Jones recommended cardiac angiogr am, which was performed by Dr. Lencho Thomas, finding normal coronary arteries and normal ventricular function. It was determined that after she recovered from the left heart catheterization and there w as no risk for bleeding, that she could be discharged. Her wrist access site was intact with no blee ding, induration, or pain. She has been up ambulating with no problems. PHYSICAL EXAMINATION: VITAL SIGNS: On day of discharge, blood pressure 119/67, heart rate 78. CARD IAC: No murmurs, rubs, or gallops. RESPIRATORY: Lungs sounds are clear to auscultation. WRIST: A ccess site is intact with no bleeding, tenderness, or induration. DISCHARGE PLAN: She will be discharged home on metoprolol 25 mg twice daily. She is to [facility] Dr. Jones and Dr. Britt. She will see Dr. Britt in 1 month, scheduled for 02/22/2018, at 2:45, and a f olnathalieup with Dr. Jones will be scheduled after that appointment. Wrist site instructions were given v erbally and written with instructions not to lift anything heavier than 10 pounds for the next 48 pearl rs. No aggressive activity of the wrist for 48 hours. She can proceed with [place] plans [place]. Should she have problems, she is to call [facility] and contact information was prov ided to her. At this time, she currently is stable for discharge. /[id number]/MODL
[2018-01-26] MEDS ORDERED: CALCIUM CARB W/VIT D 500 MG TAB PO SCH (21:00)
[2018-01-26] MEDS ORDERED: METOPROLOL TARTRATE 25 MG TAB PO SCH (21:00)
[2018-01-27] MEDS ORDERED: CHOLECALCIFEROL VIT D3 2,000 UNITS TAB/CAP PO SCH (09:00)
[2018-01-27] MEDS ORDERED: MULTIVITAMINS 1 EACH TAB PO SCH (09:00)
[2018-01-27] MEDS ORDERED: Herbals/Supplements -Info Only PO SCH (09:00)
[2018-01-29] MEDS ORDERED: ALENDRONATE SODIUM 70 MG TAB PO SCH (07:00)
== END 2018-01-26 16:00 | disposition home or self-care (01) ==
LOC: INTOOBSV 17:31 → F2W 17:31
PROVIDERS: ADMIT Internal Medicine Cardiovascular Disease; ATTEND Internal Medicine Cardiovascular Disease
DX: I47.1 Supraventricular tachycardia (principal); R68.84 Jaw pain; M54.2 Cervicalgia; Z96.659 Presence of unspecified artificial knee joint
CPT/HCPCS: 70496; 70498; 93005; 93306; 93458; G0378; C1769; J1644; J2250; J3010; Q9967

== ENCOUNTER → 2018-01-25 | Outpatient (CLI) | payer OTHER ==
[~2018-01-25] MED LIST changes: -ACETAMINOPHEN 500 MG TAB PO ONE; +IOPAMIDOL (ISOVUE 370) 100 ML BTL IV ONE; -LR 1,000 ML IV SCH; -ROPIVACAINE 0.2% 80 MG, EPINEPHrine 0.2 MG, KETOROLAC TROMETHAMINE 30 MG, morphINE 10 M... IU ONE; -ceFAZolin 2 GM/DEXTROSE 100 ML IV ONE
== END ==
LOC: FIMAGING 14:57
PROVIDERS: ATTEND Internal Medicine Cardiovascular Disease
DX: R07.9 Chest pain, unspecified (principal); M54.9 Dorsalgia, unspecified; R68.84 Jaw pain; M54.2 Cervicalgia
CPT/HCPCS: Q9967

== ENCOUNTER → 2018-03-14 | Outpatient (CLI) | payer OTHER | LOC: CIMAGING 09:11 | PROVIDERS: ATTEND Nurse Practitioner | DX: N63.21 Unspecified lump in the left breast, upper outer quadrant (principal) | CPT/HCPCS: 76641-PO ==

== ENCOUNTER → 2018-03-19 | Outpatient (CLI) | payer OTHER | LOC: BRMIMAGING 09:04 | PROVIDERS: ATTEND Nurse Practitioner | DX: M81.0 Age-related osteoporosis without current pathological fracture (principal) ==

== ENCOUNTER → 2018-03-26 | Outpatient (CLI) | payer OTHER ==
[~2018-03-26] MED LIST changes: +BUPIVACAINE 0.5% 30 ML SDV ONE; -IOPAMIDOL (ISOVUE 370) 100 ML BTL IV ONE; +LIDOCAINE 1% 300 MG/30 ML SDV ONE; +THROMBIN (BOVINE) 5,000 UNIT VIAL TP ONE
== END ==
LOC: FIMAGING 07:11
PROVIDERS: ATTEND Nurse Practitioner
DX: N63.21 Unspecified lump in the left breast, upper outer quadrant (principal); D05.12 Intraductal carcinoma in situ of left breast

== ENCOUNTER 2018-04-17 06:42 | Day surgery (SDC) | payer OTHER ==
[2018-04-17] MEDS ORDERED: NS 1,000 ML IV ONE (06:44)
[2018-04-17 07:52] LABS: PLATELET COUNT 211 10^3/uL (150-400)
[2018-04-17 08:00] LABS: INR 1.01 (0.83-1.16); PROTIME(PATIENT) 13.5 SEC (12.0-15.0)
[2018-04-17] MEDS ORDERED: LIDOCAINE 1% 300 MG/30 ML SDV ONE (08:14)
[2018-04-17] MEDS ORDERED: HEPARIN 10,000 UNIT/10 ML MDV (1,000 UNIT/ML) ONE (08:15)
[2018-04-17] MEDS ORDERED: ISOPROTERENOL HCL/D5W 0.2 MG/50 ML BAG IV ONE (08:15)
[2018-04-17] MEDS ORDERED: BUPIVACAINE 0.75% 10 ML SDV ONE (08:15)
[2018-04-17] MEDS ORDERED: MIDAZOLAM 2 MG/2 ML VIAL IVP ONE (08:27)
[2018-04-17] MEDS ORDERED: DEXAMETHASONE 4 MG/ML VIAL IVP PRN (08:27)
[2018-04-17] MEDS ORDERED: ALBUTEROL 3 ML DEYVIAL IH PRN (08:27)
[2018-04-17] MEDS ORDERED: NALOXONE HCL 0.4 MG/ML INJ IVP PRN (08:27)
[2018-04-17] MEDS ORDERED: ONDANSETRON 4 MG/2 ML VIAL IVP PRN (08:27)
--- NOTE | 2018-04-17 08:27 | PDANEPAE ---
ANE History of Present Illness here for SVT ablation ANE Past Medical History - Cardiovascular History Hx Hypertension: No Hx Arrhythmias: No Hx Chest Pain: No Hx Coronary Artery / Peripheral Vascular Disease: No Hx CHF / Valvular Disease: No - Pulmonary History Hx COPD: No Hx Asthma/Reactive Airway Disease: No Hx Recent Upper Respiratory Infection: No Hx Oxygen in Use at Home: No Hx Sleep Apnea: No - Neurologic History Hx Cerebrovascular Accident: No Hx Seizures: No Hx Dementia: No - Endocrine History Hx Diabetes: No - Renal History Hx Renal Disorders: No - Liver History Hx Hepatic Disorders: No - Neurological & Psychiatric Hx Hx Neurological and Psychiatric Disorders: No - Cancer History Hx Cancer: No - Congenital Disorder History Hx Congenital Disorders: No - GI History Hx Gastrointestinal Disorders: No - Other Health History Other Health History: OA, traumatic injury 40yrs ago Left knee - Chronic Pain History Chronic Pain: No - Surgical History Prior Surgeries: R rotator cuff 12-10-14. LEFT KNEE 40 YEARS AGO FOR TORN LIGAMENT. 4X ABD SURGERIES FOR ECTOPIC PREGNANCIES. 2002 OVARIES REMOVED. TONSILLECTOMY CHILD ANE Review of Systems Review of systems is: negative Review of Systems: - Exercise capacity Exercise capacity: >=4 METS ANE Patient History - Allergies Allergies/Adverse Reactions: No Known Allergies Allergy (Verified 11/22/16 10:03) - Home Medications Home medications: home medication list seen and reviewed Home Medications: Calcium Carb W/Vit D [Calcium Carb W/Vit D 500/200 (*)] 500 mg PO BID 11/18/16 [ Last Taken Unknown] Cholecalciferol Vit D3 [Vitamin D3 2000 units tab (OTC)] 2,000 units PO DAILY [Last Taken Unknown] Herbals/Supplements -Info Only 1 ea PO DAILY 11/18/16 [Last Taken Unknown] Multivitamins [Multivitamin (*)] 1 each PO DAILY 11/18/16 [Last Taken Unknown] Naproxen Sodium [Aleve 220 MG (*)] 220 mg PO BID PRN 11/18/16 [Last Taken 22:00] Alendronate Sodium [Fosamax 70 MG (*)] 70 mg PO MO@0700 01/25/18 [Last Taken 07/30 07:00] - NPO status NPO Status: no food or drink >8 hours - Smoking Hx Smoking Status: Never smoked - Family Anes Hx Family Hx Anesthesia Complications: NONE ANE Labs/Vital Signs - Labs Result Diagrams: 04/17/18 07:30 04/17/18 07:30 - Vital Signs Vital Signs: reviewed preoperatively; see RN documention for details Height: 172.72 cm Weight: 55.792 kg ANE Physical Exam - Airway Neck exam: FROM Mallampati Score: Class 1 - Pulmonary Pulmonary: no respiratory distress - Cardiovascular Cardiovascular: regular rate and rhythym - ASA Status ASA Status: II ANE Anesthesia Plan Anesthesia Plan: general endotracheal anesthesia
[2018-04-17] MEDS ORDERED: MIDAZOLAM 2 MG/2 ML VIAL ONE (08:29)
[2018-04-17] MEDS ORDERED: PROPOFOL/EMULSION 500 MG/50 ML BOTTLE IV ONE ×2 (08:34→09:03)
--- NOTE | 2018-04-17 08:48 | PDGENHP ---
History & Physical Chief Complaint: SVT Ablation History of Present Illness: Symptomatic SVT accompanied by jaw discomfort and exercise intolerance. Recent hospitalization due to symptoms - telemetry demonstrated narrow-complex tachycardia at 150bpm. Normal coronary angio 2017. Relevant Physical Exam: General: No apparent distress, A&Ox4. Respiratory: CTA. Cardiac: regular rate and rhythm. Extremities: Normal exam, pulses 2+ bilaterally, no edema Cardiorespiratory Assessment: Proceed with SVT ablation today as planned. Metoprolol has been held in preparation for this procedure.
[2018-04-17] MEDS ORDERED: fentaNYL 100 MCG/2 ML INJ ONE (08:49)
[2018-04-17] MEDS ORDERED: PHENYLEPHRINE HCL 100 MCG/ML SYR ONE (09:52)
[2018-04-17] MEDS ORDERED: ONDANSETRON 4 MG/2 ML VIAL ONE (10:09)
[2018-04-17] MEDS ORDERED: SUGAMMADEX SODIUM 200 MG/2 ML VIAL IVP ONE (10:14)
--- NOTE | 2018-04-17 10:22 | EPPROC ---
Electrophysiology Procedure Note: DIAGNOSTIC ELECTROPHYSIOLOGIC STUDY Procedures performed: 1.Fluoroscopy 2. EP evaluation with RA/RV/LA pace/record, with arrhythmia induction 3. EP evaluation with RA/RV pace record, insert/reposition catheter, with arrhythmia induction 4. Programmed stimulation + pacing after IV drug INDICATION: Narrow complex tachycardia PROCEDURE: Catheters & Anesthesia: The patient arrived in the Electrophysiology Laboratory in the fasting state. The right clavicular region, right groin, & left groin area were prepped & draped in the usual sterile manner. Dr. Paulo Calvert administered anesthesia. Appropriate non-invasive blood pressure, pulse oximetry & end-tidal CO2 monitoring was established. All catheters were placed percutaneously using the modified Seldinger technique , and advanced into position under fluoroscopic guidance. One #6 Mongolian hexapolar non-deflectable electrode catheter was inserted into the right atrial appendage via the left femoral vein (2mm spacing; except the proximal ring which was 25cm from the tip used for unipolar recordings). One #7 Mongolian deflectable octapolar electrode catheter was advanced to the His-bundle position via the left femoral vein (2mm spacing). One #7 Mongolian deflectable quadrapolar catheter was advanced to the anteroseptal right ventricle via the right femoral vein. One #7 [place]ian deflectable catheter with 10 pairs of electrodes was placed via the right femoral vein into the coronary sinus. Programmed stimulation was performed from the right atrium, right ventricle and coronary sinus (left atrium). Parahisian pacing demonstrated constant H-A interval with changing V-A intervals and stimulus-A intervals during capture and loss of capture of proximal RBB proving retrograde conduction over AV node. There was no antegrade accessory pathway conduction. Heparin 3000 U was administered. No sustained reentrant tachycardia was induced during programmed stimulation at baseline or during graded doses of isoproterenol up to 2 mcg/min. Atrial fibrillation was induced x 3, this required cardioversion due to hypotension. Nonsustained atrial tachycardia 5-7 bts, earliest activation in proximal CS was seen, this would quickly degenerate to atrial fibrillation. The catheters were removed. Vascular access sheaths were removed in the EP lab after placing subcutaneous pursestring suture. The patient was transferred to the cardiovascular holding area in stable condition. There were no apparent complications. CONCLUSIONS 1. Normal sinus and AV node function. 2. No evidence of accessory AV pathway presence. 3. No sustained arrhythmias induced. 4. No apparent complications. RECOMMENDATIONS Continue metoprolol for now. If recurrent symptoms consider EP study with patient fully awake. Consider empiric atrial flutter ablation. Patient Problems: Problems Problem Status Onset Arthritis of left knee Acute Atrial tachycardia Acute Atrial tachycardia, paroxysmal Acute
--- NOTE | 2018-04-17 11:52 | CPEKG ---
Test Reason : OPEN Blood Pressure : / mmHG Vent. Rate : 079 BPM Atrial Rate : 080 BPM P-R Int : 114 ms QRS Dur : 084 ms QT Int : 403 ms P-R-T Axes : 079 069 025 degrees QTc Int : [address] depr, consider ischemia, anterolateral lds Confirmed by Jose Patten ([id number]) on 04/17/2018 11:52:33 AM Referred By: Confirmed By:Jose Patten
== END 2018-04-17 16:39 | disposition home or self-care (01) ==
LOC: FCATH 06:42
PROVIDERS: ATTEND Internal Medicine Cardiovascular Disease
DX: I47.1 Supraventricular tachycardia (principal)
CPT/HCPCS: 93005; 93620; 93621; 93623; C1730; C1731; J1644; J2250; J2370; J2405; J2704; J3010

== ENCOUNTER 2018-04-25 09:39 | Day surgery (SDC) | payer OTHER ==
[2018-04-25] MEDS ORDERED: LIDOCAINE 1% 2 ML INJ ONE (09:51)
[2018-04-25] MEDS ORDERED: LR 1,000 ML IV ONE (10:02)
[2018-04-25] MEDS ORDERED: LIDOCAINE 1% 2 ML INJ ID PRN (10:02)
[2018-04-25] MEDS ORDERED: ceFAZolin 2 GM/DEXTROSE 100 ML IV ONE (10:02)
[2018-04-25] MEDS ORDERED: MIDAZOLAM 2 MG/2 ML VIAL IVP ONE ×2 (11:06→11:20)
--- NOTE | 2018-04-25 11:06 | PDANEPAE ---
ANE History of Present Illness I did not participate in the care of this pt ANE Past Medical History - Cardiovascular History Hx Hypertension: No Hx Arrhythmias: No Hx Chest Pain: No Hx Coronary Artery / Peripheral Vascular Disease: No Hx CHF / Valvular Disease: No Cardiovascular History Comment: METOPROLOL. 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 LEFT KNEE 40 YEARS AGO FOR TORN LIGAMENT. 4X ABD SURGERIES FOR ECTOPIC PREGNANCIES. 2002 OVARIES REMOVED. TONSILLECTOMY CHILD ANE Review of Systems Review of Systems: - Exercise capacity METS (RN): 5 METS ANE Patient History - Allergies Allergies/Adverse Reactions: No Known Allergies Allergy (Verified 11/22/16 10:03) - Home Medications Home Medications: Calcium Carb W/Vit D [Calcium Carb W/Vit D 500/200 (*)] 500 mg PO BID 11/18/16 [ Last Taken 04/22/18] Cholecalciferol Vit D3 [Vitamin D3 2000 units tab (OTC)] 2,000 units PO DAILY [Last Taken 04/22/18] Herbals/Supplements -Info Only 1 ea PO DAILY 11/18/16 [Last Taken 04/22/18] Multivitamins [Multivitamin (*)] 1 each PO DAILY 11/18/16 [Last Taken 04/22/18] Naproxen Sodium [Aleve 220 MG (*)] 220 mg PO BID PRN 11/18/16 [Last Taken 22:00] Alendronate Sodium [Fosamax 70 MG (*)] 70 mg PO MO@0700 01/25/18 [Last Taken 01/30] - NPO status NPO Since - Liquids (Date): 04/25/18 NPO Since - Liquids (Time): 08:00 NPO Since - Solids (Date): 04/24/18 NPO Since - Solids (Time): 20:00 - Smoking Hx Smoking Status: Never smoked - Family Anes Hx Family Hx Anesthesia Complications: NONE ANE Labs/Vital Signs - Vital Signs Blood Pressure: 138/72 Heart Rate: 62 Respiratory Rate: 20 O2 Sat (%): 8 Height: 165.1 cm Weight: 56.699 kg ANE Anesthesia Plan Total IV Anesthesia: Yes
--- NOTE | 2018-04-25 11:20 | PDANEPAE ---
ANE History of Present Illness port, lymph node biopsy ANE Past Medical History - Cardiovascular History Hx Hypertension: No Hx Arrhythmias: Yes Hx Chest Pain: No Hx Coronary Artery / Peripheral Vascular Disease: No Hx CHF / Valvular Disease: No Cardiovascular History Comment: METOPROLOL. ATTEMPTED ABLATION 04/17/18 DR ROMERO - Pulmonary History Hx COPD: No Hx Asthma/Reactive Airway Disease: No Hx Recent Upper Respiratory Infection: No Hx Oxygen in Use at Home: No Hx Sleep Apnea: No Sleep Apnea Screening Result - Last Documented: Negative - Neurologic History Hx Cerebrovascular Accident: No Hx Seizures: No Hx Dementia: No - Endocrine History Hx Diabetes: No Hypothyroid: No Hyperthyroid: No Obesity: no - Renal History Hx Renal Disorders: No - Liver History Hx Hepatic Disorders: No - Neurological & Psychiatric Hx Hx Neurological and Psychiatric Disorders: No - Cancer History Hx Cancer: No Cancer History Comment: BREAST CA. LYMPH NODE AXILLARY - Congenital Disorder History Hx Congenital Disorders: No - GI History GERD: no Hx Gastrointestinal Disorders: No - Other Health History Other Health History: OA, traumatic injury 40yrs ago Left knee - Chronic Pain History Chronic Pain: No - Surgical History Prior Surgeries: R rotator cuff 12-10-14. LEFT KNEE 40 YEARS AGO FOR TORN LIGAMENT. 4X ABD SURGERIES FOR ECTOPIC PREGNANCIES. 2002 OVARIES REMOVED. TONSILLECTOMY CHILD ANE Review of Systems Review of Systems: - Exercise capacity Exercise capacity: >=4 METS METS (RN): 5 METS ANE Patient History - Allergies Allergies/Adverse Reactions: No Known Allergies Allergy (Verified 11/22/16 10:03) - Home Medications Home medications: home medication list seen and reviewed Home Medications: Calcium Carb W/Vit D [Calcium Carb W/Vit D 500/200 (*)] 500 mg PO BID 11/18/16 [ Last Taken 04/22/18] Cholecalciferol Vit D3 [Vitamin D3 2000 units tab (OTC)] 2,000 units PO DAILY [Last Taken 04/22/18] Herbals/Supplements -Info Only 1 ea PO DAILY 11/18/16 [Last Taken 04/22/18] Multivitamins [Multivitamin (*)] 1 each PO DAILY 11/18/16 [Last Taken 04/22/18] Naproxen Sodium [Aleve 220 MG (*)] 220 mg PO BID PRN 11/18/16 [Last Taken 22:00] Alendronate Sodium [Fosamax 70 MG (*)] 70 mg PO MO@0700 01/25/18 [Last Taken 01/30] - NPO status NPO Status: no food or drink >8 hours NPO Since - Liquids (Date): 04/25/18 NPO Since - Liquids (Time): 08:00 NPO Since - Solids (Date): 04/24/18 NPO Since - Solids (Time): 20:00 - Smoking Hx Smoking Status: Never smoked - Family Anes Hx Family Hx Anesthesia Complications: NONE ANE Labs/Vital Signs - Vital Signs Blood Pressure: 138/72 Heart Rate: 62 Respiratory Rate: 20 O2 Sat (%): 8 Height: 165.1 cm Weight: 56.699 kg ANE Physical Exam - Airway Mallampati Score: Class 2 Mouth exam: normal dental/mouth exam - Pulmonary Pulmonary: no respiratory distress - Cardiovascular Cardiovascular: regular rate and rhythym - ASA Status ASA Status: II ANE Anesthesia Plan Anesthesia Plan: GA w LMA
[2018-04-25] MEDS ORDERED: fentaNYL 100 MCG/2 ML INJ ONE ×2 (11:23→13:09)
[2018-04-25] MEDS ORDERED: LIDOCAINE 2% 5 ML SDV ONE ×2 (11:23→14:52)
[2018-04-25] MEDS ORDERED: PROPOFOL 200 MG/20 ML VIAL ONE (11:23)
[2018-04-25] MEDS ORDERED: DEXAMETHASONE 4 MG/ML VIAL ONE (11:24)
[2018-04-25] MEDS ORDERED: KETOROLAC 30 MG/1 ML SDV ONE (11:24)
[2018-04-25] MEDS ORDERED: ONDANSETRON 4 MG/2 ML VIAL ONE (11:24)
[2018-04-25] MEDS ORDERED: GLYCOPYRROLATE 0.2 MG/1 ML VIAL ONE (12:17)
[2018-04-25] MEDS ORDERED: fentaNYL 100 MCG/2 ML INJ IVP PRN (12:33)
[2018-04-25] MEDS ORDERED: ALBUTEROL 3 ML DEYVIAL IH PRN (12:33)
[2018-04-25] MEDS ORDERED: LR 500 ML IV PRN (12:33)
[2018-04-25] MEDS ORDERED: ONDANSETRON 4 MG/2 ML VIAL IVP PRN (12:33)
[2018-04-25] MEDS ORDERED: NALOXONE HCL 0.4 MG/ML INJ IVP PRN (12:33)
[2018-04-25] MEDS ORDERED: HYDROCODONE/APAP 5/325 TAB PO PRN (12:33)
--- NOTE | 2018-04-25 12:46 | POSTOPPROG ---
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 Port in good position Inf/Abcess present in the surg proc area at time of surgery?: No EBL: Minimal Specimen(s): L axillary lymph node - permanent
[2018-04-25] MEDS ORDERED: HYDROCODONE/APAP 5/325 TAB ONE (13:09)
[2018-04-25 14:19] VITALS: BP 126/80
== END 2018-04-25 14:20 | disposition home or self-care (01) ==
LOC: FSGY 09:39
PROVIDERS: ATTEND Surgery
PROC: 07B60ZX Excision of Left Axillary Lymphatic, Open Approach, Diagnostic (ICD-10-PCS; principal; 2018-04-25 11:00)
PROC: B5181ZA Fluoroscopy of Superior Vena Cava using Low Osmolar Contrast, Guidance (ICD-10-PCS; principal; 2018-04-25 11:00)
PROC: 0JH60XZ Insertion of Tunneled Vascular Access Device into Chest Subcutaneous Tissue and Fascia, Open Approach (ICD-10-PCS; principal; 2018-04-25 11:00)
PROC: 02HV33Z Insertion of Infusion Device into Superior Vena Cava, Percutaneous Approach (ICD-10-PCS; principal; 2018-04-25 11:00)
DX: C50.412 Malignant neoplasm of upper-outer quadrant of left female breast (principal); C77.3 Secondary and unspecified malignant neoplasm of axilla and upper limb lymph nodes; I49.9 Cardiac arrhythmia, unspecified
CPT/HCPCS: C1788; J0690; J1100; J1642; J1885; J2250; J2405; J2704; J3010

== ENCOUNTER → 2018-06-26 | Outpatient (CLI) | payer OTHER ==
[~2018-06-26] MED LIST changes: -BUPIVACAINE 0.5% 30 ML SDV ONE; +IOHEXOL 300 mgI/ML (OMNIPAQUE) 150 ML BTL IV ONE; -LIDOCAINE 1% 300 MG/30 ML SDV ONE; -THROMBIN (BOVINE) 5,000 UNIT VIAL TP ONE
== END ==
LOC: FIMAGING 15:14
PROVIDERS: ATTEND Nurse Practitioner
DX: N20.0 Calculus of kidney (principal); K59.00 Constipation, unspecified
CPT/HCPCS: Q9967

== ENCOUNTER → 2018-08-24 | Outpatient (CLI) | payer OTHER ==
[~2018-08-24] MED LIST changes: +GADOBUTROL 10 ML VIAL IVP ONE; -IOHEXOL 300 mgI/ML (OMNIPAQUE) 150 ML BTL IV ONE
== END ==
LOC: FIMAGING 15:49
PROVIDERS: ATTEND Surgery
DX: C50.412 Malignant neoplasm of upper-outer quadrant of left female breast (principal)
CPT/HCPCS: A9585; C8908

== ENCOUNTER 2018-09-06 06:28 | Day surgery (SDC) | payer OTHER ==
--- NOTE | 2018-09-06 06:41 | POSTOPPROG ---
Post Op Note Date of Operation: 09/06/18 Surgeon: Shanta Villa Pre-op Diagnosis: L breast multifocal cancer Post-op Diagnosis: same Indication: 62 yo with multifocal breast cancer Procedure: l needle loc lumpectomy and sln Findings: clip in specimen Inf/Abcess present in the surg proc area at time of surgery?: No EBL: Minimal Specimen(s): lumpectomy, margins and node
[2018-09-06] MEDS ORDERED: LR 1,000 ML IV ONE (06:42)
[2018-09-06] MEDS ORDERED: ceFAZolin 2 GM/DEXTROSE 100 ML IV ONE (06:42)
[2018-09-06] MEDS ORDERED: LIDOCAINE 1% 300 MG/30 ML SDV ONE ×2 (07:17→07:32)
[2018-09-06] MEDS ORDERED: BUPIVACAINE 0.5% 30 ML SDV ONE (07:17)
--- NOTE | 2018-09-06 09:04 | PDANEPAE ---
ANE Past Medical History - Cardiovascular History Hx Hypertension: No Hx Arrhythmias: Yes Hx Chest Pain: No Hx Coronary Artery / Peripheral Vascular Disease: No Hx CHF / Valvular Disease: No Hx Palpitations: Yes Cardiovascular History Comment: METOPROLOL. ATTEMPTED ABLATION 04/17/18 DR ROMERO - Pulmonary History Hx COPD: No Hx Asthma/Reactive Airway Disease: No Hx Recent Upper Respiratory Infection: No Hx Oxygen in Use at Home: No Hx Sleep Apnea: No Sleep Apnea Screening Result - Last Documented: Negative - Neurologic History Hx Cerebrovascular Accident: No Hx Seizures: No Hx Dementia: No - Endocrine History Hx Diabetes: No - Renal History Hx Renal Disorders: No - Liver History Hx Hepatic Disorders: No - Neurological & Psychiatric Hx Hx Neurological and Psychiatric Disorders: No - Cancer History Hx Cancer: No Cancer History Comment: BREAST CA. LYMPH NODE AXILLARY. CHEMO L.D. 09/05/18 - Congenital Disorder History Hx Congenital Disorders: No - GI History Hx Gastrointestinal Disorders: No - Other Health History Other Health History: OA, traumatic injury 40yrs ago Left knee - Chronic Pain History Chronic Pain: No - Surgical History Prior Surgeries: PORT PLACEMENT 04/2018. ABLATION FOR SVTs 04/2018. R rotator cuff 12-10-14. LEFT KNEE 40 YEARS AGO FOR TORN LIGAMENT. 4X ABD SURGERIES FOR ECTOPIC PREGNANCIES. 2002 OVARIES REMOVED. TONSILLECTOMY CHILD ANE Review of Systems Review of Systems: - Exercise capacity METS (RN): 5 METS ANE Patient History - Allergies Allergies/Adverse Reactions: No Known Allergies Allergy (Verified 11/22/16 10:03) - Home Medications Home Medications: Calcium Carb W/Vit D [Calcium Carb W/Vit D 500/200 (*)] 500 mg PO BID 11/18/16 [ Last Taken 09/03/18] Cholecalciferol Vit D3 [Vitamin D3 2000 units tab (OTC)] 2,000 units PO DAILY [Last Taken 09/03/18] Herbals/Supplements -Info Only 1 ea PO DAILY 11/18/16 [Last Taken 09/03/18] Multivitamins [Multivitamin (*)] 1 each PO DAILY 11/18/16 [Last Taken 09/03/18] Naproxen Sodium [Aleve 220 MG (*)] 220 mg PO BID PRN 11/18/16 [Last Taken ] Alendronate Sodium [Fosamax 70 MG (*)] 70 mg PO MO@0700 01/25/18 [Last Taken ] Ativan 09/06/18 [Last Taken 09/06/18] - NPO status NPO Since - Liquids (Date): 09/05/18 NPO Since - Liquids (Time): 22:00 NPO Since - Solids (Date): 09/05/18 NPO Since - Solids (Time): 21:30 - Smoking Hx Smoking Status: Never smoked - Family Anes Hx Family Hx Anesthesia Complications: NONE ANE Labs/Vital Signs - Vital Signs Blood Pressure: 129/65 Heart Rate: 78 Respiratory Rate: 16 O2 Sat (%): 97 Height: 165.1 cm Weight: 54.431 kg ANE Physical Exam - Airway Neck exam: FROM Mallampati Score: Class 2 Mouth exam: normal dental/mouth exam - Pulmonary Pulmonary: clear to auscultation - Cardiovascular Cardiovascular: regular rate and rhythym - ASA Status ASA Status: II ANE Anesthesia Plan Anesthesia Plan: GA w LMA
[2018-09-06] MEDS ORDERED: MIDAZOLAM 2 MG/2 ML VIAL IVP ONE (09:08)
[2018-09-06] MEDS ORDERED: MIDAZOLAM 2 MG/2 ML VIAL ONE (09:09)
[2018-09-06] MEDS ORDERED: fentaNYL 100 MCG/2 ML INJ ONE (09:13)
[2018-09-06] MEDS ORDERED: PROPOFOL 200 MG/20 ML VIAL ONE (09:13)
[2018-09-06] MEDS ORDERED: METOCLOPRAMIDE 10 MG/2 ML VIAL ONE (09:14)
[2018-09-06] MEDS ORDERED: PHENYLEPHRINE HCL 100 MCG/ML SYR ONE (09:34)
[2018-09-06] MEDS ORDERED: LIDOCAINE 2% 100 MG/5 ML SYR ONE (09:46)
[2018-09-06] MEDS ORDERED: ONDANSETRON 4 MG/2 ML VIAL ONE (09:47)
[2018-09-06] MEDS ORDERED: DEXAMETHASONE 4 MG/ML VIAL ONE (09:47)
[2018-09-06] MEDS ORDERED: KETOROLAC 30 MG/1 ML SDV ONE (09:47)
[2018-09-06] MEDS ORDERED: MEPERIDINE 25 MG/0.5 ML AMP IVP PRN (09:55)
[2018-09-06] MEDS ORDERED: LR 500 ML IV PRN (09:55)
[2018-09-06] MEDS ORDERED: DEXAMETHASONE 4 MG/ML VIAL IVP PRN (09:55)
[2018-09-06] MEDS ORDERED: fentaNYL 100 MCG/2 ML INJ IVP PRN (09:55)
[2018-09-06] MEDS ORDERED: ALBUTEROL 3 ML DEYVIAL IH PRN (09:55)
[2018-09-06] MEDS ORDERED: ACETAMINOPHEN 500 MG TAB PO PRN (09:55)
[2018-09-06] MEDS ORDERED: PROMETHAZINE HCL 25 MG/ML INJ IVP PRN (09:55)
[2018-09-06] MEDS ORDERED: METOCLOPRAMIDE 10 MG/2 ML VIAL IVP PRN (09:55)
[2018-09-06] MEDS ORDERED: HYDROCODONE/APAP 5/325 TAB PO PRN (09:55)
[2018-09-06] MEDS ORDERED: NALOXONE HCL 0.4 MG/ML INJ IVP PRN (09:55)
[2018-09-06] MEDS ORDERED: oxyCODONE IR 5 MG TAB PO PRN (09:55)
[2018-09-06] MEDS ORDERED: ONDANSETRON 4 MG/2 ML VIAL IVP PRN (09:55)
[2018-09-06] MEDS ORDERED: HYDROmorphONE/DILAUDID 1 MG/ML INJ IVP PRN (09:55)
--- NOTE | 2018-09-06 10:35 | GOP ---
[f rep st] OPERATIVE REPORT DATE OF OPERATION: 09/06/2018 SURGEON: Shanta Villa MD ANESTHESIA: General. ANESTHESIOLOGIST: Jhoana Sharpe MD. 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 POSTOPERATIVE DIAGNOSIS: Left breast upper outer invasive ductal carcinoma. PROCEDURE PERFORMED: Left needle localized lumpectomy, left sentinel lymph node. FINDINGS: clip in the specimen SPECIMENS: Left lumpectomy, additional margins, and sentinel lymph node. ESTIMATED BLOOD LOSS: 10 cc. INDICATIONS: The patient is a 62-year-old woman who was found to have multifocal left breast upper outer cancer. She also had a palpable node that was not visible on imaging. I placed a port and performed lymph node biopsy and the lymph node was positive. She underwent neoadjuvant chemotherapy. Her repeat MRI did not show evidence of disease. She presents for her formal lumpectomy and sentinel lymph node. We had an extensive discussion regarding axillary dissection versus attempt at sentinel lymph node. DESCRIPTION OF PROCEDURE: Patient was brought into the operating room, placed supine on the table, and general anesthesia was administered. Her left breast and axilla were prepped and draped in the usual sterile fashion. I infiltrated all sites with 0.5% Marcaine prior to making incisions. I made an ellipse around the wire and created superior and inferior skin flaps. I dissected down to the level of the pectoralis muscle. This was inked green anterior, red superior, yellow medial, blue inferior, orange lateral, black posterior. Hemostasis achieved in the cavity. I obtained an additional superior margin inked red, medial yellow, inferior blue, lateral orange, and posterior black. These were submitted to Pathology for permanent. From the same incision, I was able to break into the axillary space and pull up the axillary tissue. I could identify an area that was a bit hotter than the background. This was adjacent to the clip I had placed at her previous surgery. I excised this lymph tissue, and the background was much lower. This was submitted to Pathology for permanent. Hemostasis achieved. I placed Fatimah in the wound bed. The deep layer was closed with 3-0 Vicryl, skin closed with 3-0 Vicryl, followed by 4-0 Monocryl. Mastisol, Steri-Strips, sterile dressing were applied. She was awakened in the operating room, extubated, transferred to PACU in stable condition. /[id number]/MODL MTDD
[2018-09-06 11:12] VITALS: BP 116/75
== END 2018-09-06 11:20 | disposition home or self-care (01) ==
LOC: FSGY 06:28
PROVIDERS: ATTEND Surgery
PROC: 0HBU0ZZ Excision of Left Breast, Open Approach (ICD-10-PCS; principal; 2018-09-06 09:00)
PROC: 07B60ZX Excision of Left Axillary Lymphatic, Open Approach, Diagnostic (ICD-10-PCS; principal; 2018-09-06 09:00)
DX: C50.412 Malignant neoplasm of upper-outer quadrant of left female breast (principal); I49.9 Cardiac arrhythmia, unspecified
CPT/HCPCS: 19302; 76098; 78195; A9520; J0690; J1100; J1642; J1885; J2001; J2250; J2370; J2405; J2704; J2765; J3010